=== PATIENT | female | born 1990 | race Caucasian/White ===

== ENCOUNTER 2017-09-02 16:10 | Inpatient (IN) | payer BC, OTHER ==
--- NOTE | 2017-09-03 00:05 | PDOC H&P ---
History of Present Illness Admission Date/PCP: 09/02/17 20:14 MYRON CLIFTON Patient complains of: SOB, dysuria, back pain x 2 days. History of Present Illness: ROB RODNEY is a 27 year old female @ 36 wks EGA with history of "kidney problems" diagnosed with pyelonephritis in the ER this evening. has been afrebrile since arrival but is requiring O2 supplementation and mildly SOB. complaining of flank pain mainly on the right. Past Medical History Pulmonary Medical History: Reports: Asthma Psychiatric Medical History: Denies: Depression Past Surgical History Past Surgical History: Reports: Orthopedic Surgery - left hand surgery Social History Smoking Status: Never Smoker Frequency of Alcohol Use: None Hx Recreational Drug Use: No Drugs: None Hx Prescription Drug Abuse: No Family History Family History: Arthritis, CAD, CVA, DM, Hyperlipidemia, Malignancy Parental Family History Reviewed: Yes Children Family History Reviewed: Yes Sibling(s) Family History Reviewed.: Yes Medication/Allergy Home Medications: Albuterol Sulfate [Proair HFA] 1 - 2 puff IH Q4 PRN 09/02/17 Fluticasone Propionate [Flovent Diskus] 2 puff IH PRN PRN 09/02/17 Ondansetron [Zofran Odt 4 mg Tablet] 1 tab PO Q6H PRN 09/02/17 Prenat 115/Iron Fum/Folic/Dss [Pnv-Ferrous Efhhwuac-Zvmr-RF] 1 tab PO DAILY 03/13 Allergies/Adverse Reactions: No Known Allergies Allergy (Unverified 09/02/17 23:05) Physical Exam - Physical Exam Vital Signs: Temp Pulse Resp BP Pulse Ox 97.8 F 113 H 20 101/56 L 98 09/02/17 22:08 09/02/17 22:08 09/02/17 22:08 09/02/17 22:08 09/02/17 22:08 Intake & Output 09/01/17 09/02/17 09/03/17 06:59 06:59 06:59 Weight 78 kg General appearance: PRESENT: no acute distress, cooperative - appears ill Head exam: PRESENT: normocephalic Respiratory exam: PRESENT: clear to auscultation lesli Pulses: PRESENT: normal radial pulses Vascular exam: PRESENT: normal capillary refill GI/Abdominal exam: PRESENT: soft - gravid and nontender Additional comments: +CVA tenderness Right>Left Assessment & Plan - Diagnosis (1) Qualifiers: Weeks of gestation: 36 weeks Qualified Code(s): Z3A.36 - 36 weeks gestation of Is this a current diagnosis for this admission?: Yes (2) Pyelonephritis Is this a current diagnosis for this admission?: Yes - Time Time Spent: 30 to 50 Minutes Critical Time spent with patient: Less than 15 minutes Anticipated discharge: Home Within: within 48 hours - Inpatient Certification Based on my medical assessment, after consideration of the patient's comorbidities, presenting symptoms, or acuity I expect that the services needed warrant INPATIENT care.: Yes I certify that my determination is in accordance with my understanding of Medicare's requirements for reasonable and necessary INPATIENT services [42 CFR 412.3e].: Yes Medical Necessity: Need Close Monitoring Due to Risk of Patient Decompensation, Need for IV Antibiotics
[2017-09-03] MEDS ORDERED: CEFTRIAXONE 1 GM/D5W RTU 1 GM/50 ML RTUPB IV ONE ×2 (02:00→05:56)
[2017-09-03] MEDS: RINGERS SOLUTION,LACTATED 1,000 ML IV PRN ×3 (03:46→16:59)
[2017-09-03 03:49] LABS: APPEARANCE,URINE SLIGHTLY-CLOUDY; BILIRUBIN,URINE NEGATIVE (NEGATIVE); COLOR,URINE AMBER; GLUCOSE, URINE NEGATIVE (NEGATIVE); KETONES,URINE TRACE mg/dL (NEGATIVE); LEUKOCYTE ESTERASE,URINE MODERATE (NEGATIVE); NITRITE,URINE NEGATIVE (NEGATIVE); PROTEIN,URINE 100 mg/dL (NEGATIVE); URINE SPECIFIC GRAVITY > 1.060
[2017-09-03] MEDS ORDERED: CEFTRIAXONE 1 GM/D5W RTU 1 GM/50 ML RTUPB IV SCH ×2 (06:00→10:00)
[2017-09-03 06:58] LABS: HEMATOCRIT 24.3 % (36.0-47.0); MEAN CORPUSCULAR HEMOGLOBIN 25.5 pg (27.0-33.4); MEAN CORPUSCULAR VOLUME 77 fl (80-97); PLATELET COUNT 197 10^3/uL (150-450); RED BLOOD COUNT 3.15 10^6/uL (3.72-5.28); RED CELL DISTRIBUTION WIDTH 16.3 % (11.5-14.0); WHITE BLOOD COUNT 9.1 10^3/uL (4.0-10.5)
[2017-09-03 08:30] LABS: HEMATOCRIT 27.8 % (36.0-47.0); HEMOGLOBIN 9.2 g/dL (12.0-15.5); MEAN CORPUSCULAR HEMOGLOBIN 25.4 pg (27.0-33.4); MEAN CORPUSCULAR HGB CONC 33.1 g/dL (32.0-36.0); MEAN CORPUSCULAR VOLUME 77 fl (80-97); PLATELET COUNT 210 10^3/uL (150-450); RED BLOOD COUNT 3.63 10^6/uL (3.72-5.28); RED CELL DISTRIBUTION WIDTH 15.8 % (11.5-14.0); WHITE BLOOD COUNT 6.9 10^3/uL (4.0-10.5)
[2017-09-03 08:31] LABS: ABSOLUTE LYMPHOCYTES# (MANUAL) 0.1 10^3/uL (0.5-4.7); ABSOLUTE MONOCYTES # (MANUAL) 0.1 10^3/uL (0.1-1.4); ABSOLUTE NEUTROPHILS# (MANUAL) 6.7 10^3/uL (1.7-8.2); BAND NEUTROPHILS % (MANUAL) 5 % (3-5); BASOPHILS % (MANUAL) 0 % (0-2); EOSINOPHILS % (MANUAL) 0 % (0-6); LYMPHOCYTES % (MANUAL) 2 % (13-45); METAMYELOCYTES % (MANUAL) 2 % (0); MONOCYTES % (MANUAL) 1 % (3-13); SEGMENTED NEUTROPHILS % (MAN) 88 % (42-78); TOTAL CELLS COUNTED 100
[2017-09-03 08:33] LABS: MYELOCYTES % (MANUAL) 1 % (0); PROMYELOCYTES % (MANUAL) 1 % (0)
[2017-09-03 08:34] LABS: ANISOCYTOSIS SLIGHT; OVALOCYTES SLIGHT; PLATELET COMMENT ADEQUATE; PLATELET GIANT PRESENT; PLATELET LARGE PRESENT; POIKILOCYTOSIS SLIGHT; SCHISTOCYTES 1+; TEAR DROP CELLS SLIGHT; TOXIC GRANULATION 1+
--- NOTE | 2017-09-03 08:53 | PDOC PROGRESS REPORT ---
Subjective Progress Note for:: 09/03/17 Subjective:: pt states she feels better but still SOB Reason For Visit: PYELONEPHRITIS Physical Exam - Physical Exam Vital Signs: Temp Pulse Resp BP Pulse Ox 97.3 F 102 H 18 86/47 L 95 09/03/17 07:45 09/03/17 07:45 09/03/17 07:45 09/03/17 07:45 09/03/17 07:45 Intake & Output 09/02/17 09/03/17 09/04/17 06:59 06:59 06:59 Intake Total 240 Output Total 850 Balance -610 Weight 78 kg General appearance: PRESENT: mild distress Respiratory exam: PRESENT: clear to auscultation lesli Cardiovascular exam: PRESENT: RRR Psychiatric exam: PRESENT: normal mood Result Laboratory Results: 09/03/17 06:26 09/03/17 06:26 WBC 9.1 RBC 3.15 L Hgb 8.0 L Hct 24.3 L MCV 77 L MCH 25.5 L MCHC 33.0 RDW 16.3 H Plt Count 197 Assessment & Plan - Diagnosis (1) Qualifiers: Weeks of gestation: 36 weeks Qualified Code(s): Z3A.36 - 36 weeks gestation of Is this a current diagnosis for this admission?: Yes (2) Pyelonephritis Is this a current diagnosis for this admission?: Yes - Plan Summary Plan Summary: alicia with present plan of management
--- NOTE | 2017-09-03 09:22 | RADIOLOGY REPORT (SQ) ---
EXAM DESCRIPTION: CTA CHEST COMPLETED DATE/TIME: 09/03/2017 1:38 am REASON FOR STUDY: SOB COMPARISON: None available TECHNIQUE: CT scan of the chest performed using helical scanning technique with dynamic intravenous contrast injection. Images reviewed with lung, soft tissue and bone windows. Reconstructed coronal and sagittal MPR images reviewed. Additional 3 dimensional post-processing performed to develop Maximal Intensity Projection images (UT P). All images stored on PACS. All CT scanners at this facility use dose modulation, iterative reconstruction, and/or weight based d osing when appropriate to reduce radiation dose to as low as reasonably achievable (ALARA). [facility]: Dose Right [facility]: CareDose [facility]: Dose Right [facility]: Teradose 4D [facility]: CUPS CONTRAST TYPE AND DOSE: 127 Isovue 370- low osmolar. Contrast bolus not optimized for the pulmonary arteries. RENAL FUNCTION: None required. The patient is less than 50 years old. RADIATION DOSE: . LIMITATIONS: None. FINDINGS: LUNGS AND PLEURA: No masses, infiltrates, pneumothorax. No pleural effusions, calcificati ons. AORTA AND GREAT VESSELS: No aneurysm. Contrast bolus not optimized for the aorta. HEART: No pericardial effusion. No significant coronary artery calcifications. PULMONARY ARTERIES: No proximal pulmonary emboli. Contrast bolus not optimized for the pulmonary art eries. HILAR AND MEDIASTINAL STRUCTURES: No identified masses or abnormal nodes. HARDWARE: None in the chest. UPPER ABDOMEN: No significant findings. Limited exam. THYROID AND OTHER SOFT TISSUES: No masses. No adenopathy. BONES: No acute or significant finding. 3D MIPS: Confirm above findings. OTHER: No other significant finding. IMPRESSION: No proximal pulmonary emboli. Contrast bolus not optimized for the pulmonary arteries. COMMENT: Quality ID # [id number]: Final reports with documentation of one or more dose reduction techniques (e.g., Automated exposure control, adjustment of the mA and/or kV according to patient size, use of iterative reconstruction technique) TECHNICAL DOCUMENTATION: JOB ID: [id number] [employer]- All Rights Reserved
[2017-09-03] MEDS ORDERED: DIPHENOXYLATE HCL/ATROP SULF 2.5-0.025 MG TABLET PO PRN (10:46)
[2017-09-03] MEDS ORDERED: DIPHENOXYLATE HCL/ATROP SULF 2.5-0.025 MG TABLET PO ONE (11:00)
[2017-09-03 11:50] LABS: NT PRO BNP 24 pg/mL (<125); TROPONIN I < 0.012 ng/mL
[2017-09-03 11:55] LABS: VENOUS BLOOD PCO2 26.2 mmHg (35-63); VENOUS BLOOD PH 7.46 (7.30-7.42)
[2017-09-03 11:57] LABS: VENOUS BLOOD BASE EXCESS -3.7 mmol/L; VENOUS BLOOD HCO3 18.4 mmol/L (20-32)
[2017-09-03 11:58] LABS: BLOOD UREA NITROGEN 4 mg/dL (7-20); CALCIUM 8.3 mg/dL (8.4-10.2); GLUCOSE 116 mg/dL (75-110)
[2017-09-03 11:59] LABS: CHLORIDE 104 mmol/L (98-107); POTASSIUM 3.1 mmol/L (3.6-5.0)
[2017-09-03 12:00] LABS: ANION GAP 10 (5-19); CARBON DIOXIDE 19 mmol/L (22-30); SODIUM 132.8 mmol/L (137-145)
[2017-09-03 12:01] LABS: ALBUMIN 2.9 g/dL (3.5-5.0); ALKALINE PHOSPHATASE 89 U/L (38-126); ASPARTATE AMINO TRANSFERASE 14 U/L (14-36)
[2017-09-03 12:02] LABS: ALANINE AMINOTRANSFERASE 19 U/L (9-52); BILIRUBIN,DIRECT 0.3 mg/dL (0.0-0.4); BILIRUBIN,TOTAL 0.6 mg/dL (0.2-1.3); TOTAL PROTEIN 5.6 g/dL (6.3-8.2)
[2017-09-03] MEDS: ACETAMINOPHEN 325 MG TABLET PO PRN (16:53)
[2017-09-03] MEDS: CEFTRIAXONE SODIUM 1,000 MG in DEXTROSE 5%-WATER 50 ML IV SCH (17:00)
[2017-09-03 17:42] LABS: APPEARANCE,URINE CLEAR; BILIRUBIN,URINE NEGATIVE (NEGATIVE); COLOR,URINE STRAW; GLUCOSE, URINE NEGATIVE (NEGATIVE); KETONES,URINE 20 mg/dL (NEGATIVE); LEUKOCYTE ESTERASE,URINE MODERATE (NEGATIVE); NITRITE,URINE NEGATIVE (NEGATIVE); PROTEIN,URINE NEGATIVE (NEGATIVE); URINE SPECIFIC GRAVITY 1.004; UROBILINOGEN,URINE NEGATIVE mg/dL (<2.0)
[2017-09-04] MEDS: RINGERS SOLUTION,LACTATED 1,000 ML IV PRN ×2 (01:55→10:38)
[2017-09-04] MEDS: ACETAMINOPHEN 325 MG TABLET PO PRN ×2 (05:02→17:01)
[2017-09-04] MEDS: CEFTRIAXONE SODIUM 1,000 MG in DEXTROSE 5%-WATER 50 ML IV SCH ×2 (05:02→17:01)
--- NOTE | 2017-09-04 11:54 | PDOC PROGRESS REPORT ---
Subjective-OB Subjective: Post Delivery Day: 27 year old. Denies any needs at this time Feeling better, still has some discomfort in right flank, no nausea, eating well , breathing better today Physical Exam (OB) Vital Signs: Temp Pulse Resp BP Pulse Ox 98.1 F 99 20 93/49 L 97 09/04/17 08:10 09/04/17 08:10 09/04/17 08:10 09/04/17 08:10 09/04/17 08:10 Intake & Output 09/03/17 09/04/17 09/05/17 06:59 06:59 06:59 Intake Total 240 2930 Output Total 850 1700 Balance -610 1230 Weight 78 kg - Abdomen Hernia Present: No Objective-Diagnostic Laboratory: 09/03/17 06:26 09/03/17 17:15 Urine Color STRAW Urine Appearance CLEAR Urine pH 6.0 Ur Specific [place] 1.004 Urine Protein NEGATIVE Urine Glucose (UA) NEGATIVE Urine Ketones 20 H Urine Blood NEGATIVE Urine Nitrite NEGATIVE Ur Leukocyte Esterase MODERATE H Urine WBC (Auto) 10 Urine RBC (Auto) 0 Assessment and Plan(PN) - Assessment and Plan (1) Qualifiers: Weeks of gestation: 36 weeks Qualified Code(s): Z3A.36 - 36 weeks gestation of Is this a current diagnosis for this admission?: Yes (2) Pyelonephritis Is this a current diagnosis for this admission?: Yes - Time Spent with Patient Time with patient: Less than 15 minutes - Disposition Anticipated Discharge: Home Within: within 24 hours - continues to have some right flank discomfort, + CVAT , will continue antibiotics and possible discharge in am
[2017-09-05] MEDS: ACETAMINOPHEN 325 MG TABLET PO PRN (04:58)
[2017-09-05] MEDS: CEFTRIAXONE SODIUM 1,000 MG in DEXTROSE 5%-WATER 50 ML IV SCH (05:00)
[2017-09-05] MEDS: RINGERS SOLUTION,LACTATED 1,000 ML IV PRN (05:00)
[2017-09-05 14:18] VITALS: BP 86/50
--- NOTE | 2017-09-05 17:12 | PDOC DISCHARGE SUMMARY ---
Final Diagnosis Discharge Date: 09/05/17 - Final Diagnosis (1) Is this a current diagnosis for this admission?: Yes (2) Pyelonephritis Is this a current diagnosis for this admission?: Yes Discharge Data - Discharge Medication Prescriptions: Nitrofurantoin Monohyd/M-Cryst [Macrobid 100 mg Capsule] 100 mg PO DAILY #30 capsule Home Medications: Albuterol Sulfate [Proair HFA] 1 - 2 puff IH Q4HP PRN 09/02/17 Fluticasone Propionate [Flovent Diskus] 2 puff IH BID 09/02/17 Ondansetron [Zofran Odt 4 mg Tablet] 1 tab PO Q6HP PRN 09/02/17 Prenat 115/Iron Fum/Folic/Dss [Pnv-Ferrous Lyrixwzy-Krpt-OI] 1 tab PO DAILY 03/13 Nitrofurantoin Monohyd/M-Cryst [Macrobid 100 mg Capsule] 100 mg PO DAILY #30 capsule 09/05/17 Reason(s) for Admission: Other - pyelonephritis Procedures: NST, Ultrasound Intrapartum Procedure(s): Other - IV antibiotics, obs - Diagnosis Test Laboratory: Temp Pulse Resp BP Pulse Ox 98.0 F 90 16 86/50 L 99 09/05/17 14:16 09/05/17 14:16 09/05/17 14:16 09/05/17 14:16 09/05/17 14:16 09/03/17 06:26 RBC 3.15 L Hgb 8.0 L Hct 24.3 L - Discharge information/Instructions Discharge Activity: Activity As Tolerated, Balance Activity w/Rest Discharge Diet: As Tolerated, Regular Disposition: HOME, SELF-CARE Follow up with: [facility] in: 2, Days - no CVA tenderness on exam today, no urine culture was ever collected. Pt. reports complete relief of symptoms. rx given for macrobid for the rest of per Dr. Murray. f/u on sunday as scheduled. Pt. asked questions and verbalized understanding.
== END 2017-09-05 15:05 | disposition home or self-care (01) | DRG 781 ==
LOC: ER 16:10 → EH 20:14 → OBSVTOIN 20:14 → 2S 22:01
PROVIDERS: ADMIT Obstetrics & Gynecology; ATTEND Obstetrics & Gynecology
PROC: 4A1HXCZ Monitoring of Products of Conception, Cardiac Rate, External Approach (ICD-10-PCS; principal; 2017-09-02)
DX: O23.03 Infections of kidney in pregnancy, third trimester (principal); N12 Tubulo-interstitial nephritis, not specified as acute or chronic; Z3A.36 36 weeks gestation of pregnancy
CPT/HCPCS: 36415; 59025; 71045; 71275; 80053; 81001; 82803; 83605; 83880; 84484; 85025; 85027; 87040; 99285; J0696; J3490; J7120

== ENCOUNTER 2017-10-08 10:21 | Inpatient (IN) | payer OTHER ==
[2017-10-08] MEDS ORDERED: RINGERS SOLUTION,LACTATED 1,000 ML IV ONE (11:17)
[2017-10-08] MEDS ORDERED: MISOPROSTOL 0.2 MG TABLET ONE (11:33)
[2017-10-08] MEDS ORDERED: EPHEDRINE SULFATE INJ 50 MG/1 ML AMPULE ONE (11:33)
[2017-10-08] MEDS ORDERED: FENTANYL CITRATE INJ/PF 100 MCG/2 ML AMPUL ONE (11:33)
[2017-10-08] MEDS ORDERED: BUPIVACAINE HCL 0.25 % INJ/PF (2.5 MG/1 ML) 30 ML VIAL ONE (11:35)
[2017-10-08] MEDS ORDERED: LIDOCAINE 1% INJ-PF (10 MG/ML) 30 ML SDV ONE (11:35)
[2017-10-08] MEDS ORDERED: FENTANYL/BUPIVACAINE/NS/PF 200 MCG/100 ML RTUINJ EPI ONE (11:35)
[2017-10-08] MEDS ORDERED: OXYTOCIN/NORMAL SALINE 20 UNIT/1,000 ML RTUINJ ONE (11:35)
[2017-10-08 11:43] LABS: AMORPHOUS SEDIMENT,URINE 1+ /HPF; APPEARANCE,URINE TURBID; BILIRUBIN,URINE NEGATIVE (NEGATIVE); GLUCOSE, URINE NEGATIVE (NEGATIVE); KETONES,URINE NEGATIVE (NEGATIVE); LEUKOCYTE ESTERASE,URINE MODERATE (NEGATIVE); NITRITE,URINE NEGATIVE (NEGATIVE); PROTEIN,URINE 30 mg/dL (NEGATIVE); URINE SPECIFIC GRAVITY 1.018
[2017-10-08 11:45] LABS: COLOR,URINE DARK YELLOW
[2017-10-08 12:04] LABS: EOSINOPHILS % (AUTO) 0.4 % (0-6); TOTAL CELLS COUNTED % (AUTO) 100 %
[2017-10-08 12:07] LABS: URINE AMPHETAMINES SCREEN NEGATIVE; URINE BARBITURATES SCREEN NEGATIVE; URINE BENZODIAZEPINES SCREEN NEGATIVE; URINE COCAINE SCREEN NEGATIVE; URINE MARIJUANA (THC) SCREEN NEGATIVE; URINE METHADONE SCREEN NEGATIVE; URINE PHENCYCLIDINE SCREEN NEGATIVE
[2017-10-08 12:10] LABS: ABSOLUTE NEUT (AUTO) 7.3 10^3/uL (1.7-8.2); BASOPHILS % (AUTO) 0.2 % (0-2); HEMATOCRIT 28.7 % (36.0-47.0); HEMOGLOBIN 9.6 g/dL (12.0-15.5); LYMPHOCYTES % (AUTO) 11.2 % (13-45); MEAN CORPUSCULAR HEMOGLOBIN 25.1 pg (27.0-33.4); MEAN CORPUSCULAR HGB CONC 33.4 g/dL (32.0-36.0); MEAN CORPUSCULAR VOLUME 75 fl (80-97); MONOCYTES % (AUTO) 10.5 % (3-13); PLATELET COUNT 236 10^3/uL (150-450); RED BLOOD COUNT 3.83 10^6/uL (3.72-5.28); RED CELL DISTRIBUTION WIDTH 18.3 % (11.5-14.0); SEGMENTED NEUTROPHILS % (AUTO) 77.7 % (42-78); WHITE BLOOD COUNT 9.3 10^3/uL (4.0-10.5)
[2017-10-08] MEDS: RINGERS SOLUTION,LACTATED 1,000 ML IV PRN ×2 (14:08→14:09)
--- NOTE | 2017-10-08 15:04 | L&D Progress Notes ---
PROGRESS NOTES Datetime Report Generated by CPN: 10/08/2017 15:04 PROGRESS NOTE Impression: Normal Progression of Labor Plan: Continue Present Management Vital Signs : Reviewed Comment: arom for clear fluid, labor down for now, anticipate VAGINAL EXAM Dilatation: 10 Dilatation: 7 Effacement: 100 Effacement: 90 Station: 1 Station: 0 Contractions: q2-3 mins Contractions: q2-5mins MEMBRANES Membranes: Ruptured Membranes: Intact FETUS A FHR Category: Category I : 40+4 Estimated Weight (gm): 3300 Presentation: Oblique SIGNATURE SIGNATURE: [id number] Assignment: Bambi Murray MD Signature: with User ID: [email or web address] : with User ID: [email or web address]
[2017-10-08] MEDS ORDERED: DIPH/PERTUSS(ACELL)/TETANUS VAC/PF 0.5 ML SYR (>=10YO) IM PRN (15:56)
[2017-10-08] MEDS ORDERED: PROMETHAZINE HCL 25 MG TABLET PO PRN (15:56)
[2017-10-08] MEDS ORDERED: GLYCERIN/WITCH HAZEL LEAF 1 EACH MED..PAD TP PRN (15:56)
[2017-10-08] MEDS ORDERED: MAGNESIUM HYDROXIDE SUSP 30 ML UDCUP PO PRN (15:56)
[2017-10-08] MEDS ORDERED: DIPHENHYDRAMINE HCL 25 MG CAPSULE PO PRN (15:56)
[2017-10-08] MEDS ORDERED: NA PHOS,M-B/NA PHOS,DI-BA (ADULT) 133 ML ENEMA PR PRN (15:56)
[2017-10-08] MEDS ORDERED: ZOLPIDEM TARTRATE 5 MG TABLET PO PRN (15:56)
[2017-10-08] MEDS ORDERED: MEASLES,MUMPS&RUBELLA VACC/PF 0.5 ML VIAL SUBCUT PRN (15:56)
[2017-10-08] MEDS ORDERED: BENZOCAINE/MENTHOL AEROSOL SPRAY 56 ML TOP PRN (15:56)
[2017-10-08] MEDS ORDERED: PROMETHAZINE HCL 25 MG SUPP.RECT PR PRN (15:56)
[2017-10-08] MEDS ORDERED: PSEUDOEPHEDRINE HCL 30 MG TABLET PO PRN (15:56)
[2017-10-08] MEDS ORDERED: ACETAMINOPHEN 325 MG TABLET PO PRN (15:56)
[2017-10-08] MEDS ORDERED: DIBUCAINE 1% OINTMENT 28 GM TP PRN (15:56)
[2017-10-08] MEDS ORDERED: ACETAMINOPHEN WITH CODEINE #3 TABLET PO PRN ×2 (15:56)
[2017-10-08] MEDS ORDERED: OXYTOCIN/NORMAL SALINE 20 UNIT/1,000 ML RTUINJ IV PRN (15:56)
[2017-10-08] MEDS ORDERED: PROMETHAZINE HCL INJ 25 MG/1 ML VIAL IV PRN (15:56)
--- NOTE | 2017-10-08 16:40 | Warning Signs in Babies ---
VOD Warning Signs Datetime Report Generated by [facility]: 10/08/2017 16:39 VOD#608 -Warning Signs in Babies: Viewed with Parent(s)/Family (10/08/2017 10:42:Pinky Marino RN)
--- NOTE | 2017-10-08 17:19 | Admission Physical ---
Datetime Report Generated by CPN: 10/08/2017 17:19 CURRENT ADMISSION Chief Complaint: Uterine Contractions Chief Complaint Other: sent from office for direct admit for active labor Indication for Induction: Not Applicable Indication for Induction: Term, Intrauterine ; Active Labor Admit Plan: Admit to Unit ALLERGIES Medication Allergies: No Medication Allergies: adhesive (10/08/2017) Medication Allergies: No Known Allergies (09/02/2017) Latex: No Latex Allergies OBSTETRICAL HISTORY EDC: 10/04/2017 00:00 : 5 Para: 1 Gestational Diabetes: No Rh Sensitization: No Incompetent Cervix: No CESAR: No Infertility: No ART Treatment: No Uterine Anomaly: No IUGR: No Hx Previous C/S: No Macrosomia: No Hx Loss/Stillborn: No PIH: No Hx : No Placenta Previa/Abruption: No Depression/PP Depression: No PTL/PROM: No Post Hemorrhage: No Obstetrical History Comments: G1 2012 SAB G2 2013 girl G3 2015 SAb G4 2016 SAB G5 current SEE RECORDS Alcohol: No Marijuana : No Cocaine: No Other Illicit Drugs: No Cigarettes: Never Smoker. 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 Heart Disease: No Hosp/Surgery: No Autoimmune Disorder: No Anesthetic Complications: No Kidney Disease: Yes Abnormal Pap Smear: No Neuro/Epilepsy: No Psychiatric Disorders: No Other Medical Diseases: No Hepatitis/Liver Disease: No Significant Family History: No Varicosities/Phlebitis: No Trauma/Violence : No Thyroid Dysfunction: No Medical History Comments: [place] INFECTIOUS HISTORY Gonorrhea: No Genital Herpes: No Chlamydia: No Tuberculosis: No Syphilis: No Hepatitis: No HIV/AIDS Exposure: No Rash or Viral Illness: No HPV: No PHYSICAL EXAM General: Normal HEENT: Normal Neurologic: Normal Thyroid: Deferred Heart: Normal Lungs: Normal Breast: Deferred Back: Normal Abdomen: Normal Genitourinary Exam: Normal Extremities: Normal DTRs: Deferred Pelvic Type: Adequate Vital Signs: Reviewed VAGINAL EXAM Dilatation: 10 Dilatation: 7 Effacement: 100 Effacement: 90 Station: 1 Station: 0 Contraction Comments: q2-3 mins Contraction Comments: q2-5mins MEMBRANES Membranes: Ruptured Membranes: Intact FETUS A EGA: 40.4 Monitoring: External US FHR- Baseline: 135 Variability: Moderate 6-25bpm Accelerations: 15X15 Decelerations: None FHR Category: Category I Estimated Weight (gm): 3300 Presentation: Oblique Admit Comment: at 40+4 in active labor, sent from clinic for direct admit. current asthma with last inhaler use 2 days ago, has home meds-proair and advair. was taking macrobid daily for pyelo in . Plan is epidural and anticipate . PLANS FOR LABOR AND DELIVERY Pain Management: Epidural Feeding Preference: Formula Benefit of Breast Feed Discussed: Yes Circumcision: Yes INFORMED CONSENT Assignment: Bambi Murray MD Signature: with User ID: [email or web address] : with User ID: [email or web address]
--- NOTE | 2017-10-08 17:28 | Delivery Summary ---
Del Sum A-C Datetime Report Generated by CPN: 10/08/2017 17:28 DELIVERY PERSONNEL DELIVERY PERSONNEL: [id number] Delivery Doctor:: Fallon Abreu CNM Labor and Delivery Nurse:: Fadumo Matthews RN Nursery Nurse:: Jenny Blair RN Nursery Nurse:: Barbara Nova RN Claim Rep/WARP COILER: Kaylie Franciscoaneda, ST MATERNAL INFORMATION Delivery Anesthesia: Epidural Medications After Delivery: Pitocin Drip 20 Units/1000ml NSS Estimated Blood Loss (ml): 300 Maternal Complications: None Provider Comments: PATRICIA, NUCHAL CORD-LOOSE. LEFT SHOULDER AND NUCHAL HAND DELIVERED QUICKLY AFTER HEAD. CORD DOUBLE CLAMPED AND CUT BY FOB, SPONTANEOUS PLACENTA SHULTZE INTACT WITH 3VC. ADHERENT MEMBRANES MANUALLY REMOVED AND UTERUS EXPLORED. FIRST DEGREE PERINEAL LACERATION REPAIRED UNDER EPIDURAL ANESTHESIA. MOTHER AND INFANT STABLE IN L_D #4 LABOR SUMMARY EDC: 10/04/2017 00:00 Attempted: No Labor Anesthesia: Epidural LABOR INFORMATION Reason for Induction: Not Applicable Onset of Labor: 10/08/2017 10:46 Complete Dilatation: 10/08/2017 14:29 Oxytocin: N/A Group B Beta Strep: negative Steroids Given: None Reason Steroids Not Administered: Not Applicable MEMBRANES Membranes Rupture Method: Artificial Rupture of Membranes: 10/08/2017 14:29 Length of Rupture (hr): 1.00 Amniotic Fluid Color: Clear Amniotic Fluid Amount: Small Amniotic Fluid Odor: Normal STAGES OF LABOR Stage 1 hr: 3 Stage 1 min: 43 Stage 2 hr: 1 Stage 2 min: 0 Stage 3 hr: 0 Stage 3 min: 5 Total Time in Labor hr: 4 Total Time in Labor min: 48 VAGINAL DELIVERY Episiotomy: None Laceration #1: Perineal Laceration Extension #1: First Degree Laceration Repair: Yes Sponge Count Correct: N/A Sharps Count Correct: N/A BABY A INFORMATION Delivery Date/Time: 10/08/2017 15:29 Method of Delivery: Vaginal Born in Route : No : N/A Forceps: N/A Vacuum Extraction: N/A Shoulder Dystocia : No PRESENTATION/POSITION BABY A Presentation: Cephalic Cephalic Presentation: Vertex Vertex Position: Left Occipital Anterior Breech Presentation: N/A PLACENTA INFORMATION BABY A Placenta Delivery Time : 10/08/2017 15:34 Placenta Method of Delivery: Manual Removal Placenta Status: Delivered SCORES BABY A Heart Rate 1 min: >100 bpm Resp Effort 1 min: Good Cry Reflex Irritability 1 min: Cough or Sneeze or Pulls Away Muscle Tone 1 min: Active Motion Color 1 min: Blue/Pale Resuscitation Effort 1 min: Tactile Stimulation SCORE 1 MIN: 8 Heart Rate 5 min: >100 bpm Resp Effort 5 min: Good Cry Reflex Irritability 5 min: Cough or Sneeze or Pulls Away Muscle Tone 5 min: Active Motion Color 5 min: Body Marquez, Extremities Blue SCORE 5 MIN: 9 INFORMATION BABY A Gestational Age at Delivery: 40.4 Gestational Status: Full Term- 39- 40.6 Weeks Infant Outcome : Liveborn Infant Condition : Stable Sex: Male IDENTIFICATION BABY A Infant Verification Date/Time: 10/08/2017 16:07 ID Band Number: [id number] Mother's Name Verified: Yes RN Verifying : Gissel Matthews, RN/ JEdgar Honeycutt, RN WEIGHT/LENGTH BABY A Birthweight (gm): 3580 Weight (lb): 7 Infant Weight (oz): 14 Length (in): 20.50 Length (cm): 52.07 CORD INFORMATION BABY A No. Cord Vessels: 3 Nuchal Cord : Around Neck x1, Loose Cord Blood Taken: Yes-For Storage (Mom's Blood type +) Infant Suction: None ASSESSMENT BABY A Complications: None Physical Findings at Delivery: Within Normal Limits Infant Respirations: Appears Normal Skin to Skin: Yes Trimmer Machine/ALS Called : No Care By: Wendy Blair RN/ Barbara Transferred To: [facility] with Mother SIGNATURES Assignment: Bambi Murray MD Signature: with User ID: [email or web address] : with User ID: [email or web address] : I was personally available for consultation and serving as supervising physician for the MLP.
[2017-10-08] MEDS: FERROUS SULFATE 325 MG TABLET PO SCH (20:35)
[2017-10-08] MEDS: DOCUSATE SODIUM 100 MG CAPSULE PO SCH (20:35)
[2017-10-08] MEDS: IBUPROFEN 800 MG TABLET PO SCH (21:12)
[2017-10-08] MEDS: FAMOTIDINE 20 MG TABLET PO SCH (21:13)
[2017-10-09] MEDS: IBUPROFEN 800 MG TABLET PO SCH ×3 (05:10→21:52)
[2017-10-09 08:19] LABS: HEMOGLOBIN 9.5 g/dL (12.0-15.5); MEAN CORPUSCULAR HEMOGLOBIN 24.8 pg (27.0-33.4); MEAN CORPUSCULAR HGB CONC 32.8 g/dL (32.0-36.0); MEAN CORPUSCULAR VOLUME 76 fl (80-97); PLATELET COUNT 274 10^3/uL (150-450); RED BLOOD COUNT 3.84 10^6/uL (3.72-5.28); RED CELL DISTRIBUTION WIDTH 18.8 % (11.5-14.0); WHITE BLOOD COUNT 12.1 10^3/uL (4.0-10.5)
--- NOTE | 2017-10-09 08:25 | PDOC PROGRESS REPORT ---
Subjective-OB Progress Note for:: 10/09/17 Subjective: Doing well, had a baby boy, bottle feeding, ambulating, scant bleeding Physical Exam (OB) Vital Signs: Temp Pulse Resp BP Pulse Ox 98.4 F 102 H 14 111/71 99 10/08/17 20:00 10/08/17 20:00 10/08/17 20:00 10/08/17 20:00 10/08/17 20:00 Intake & Output 10/08/17 10/09/17 10/10/17 06:59 06:59 06:59 Weight 79 kg - PIH/Pre-Eclampsia Headache: Absent Epigastric Pain: No Visual Changes: No - Lochia Lochia Amount: Small 10-25 ml Lochia Color: Rubra/Red - Abdomen Description: Soft, Round Hernia Present: No Fundal Description: Firm, Midline Fundal Height: u/u - u/2 Objective-Diagnostic Laboratory: 10/09/17 07:29 10/08/17 10/08/17 10/08/17 10:33 11:37 11:37 WBC 9.3 RBC 3.83 Hgb 9.6 L Hct 28.7 L MCV 75 L MCH 25.1 L MCHC 33.4 RDW 18.3 H Plt Count 236 Seg Neutrophils % 77.7 Lymphocytes % 11.2 L Monocytes % 10.5 Eosinophils % 0.4 Basophils % 0.2 Absolute Neutrophils 7.3 Absolute Lymphocytes 1.0 Absolute Monocytes 1.0 Absolute Eosinophils 0.0 Absolute Basophils 0.0 Urine Color DARK YELLOW Urine Appearance TURBID Urine pH 7.0 Ur Specific [place] 1.018 Urine Protein 30 H Urine Glucose (UA) NEGATIVE Urine Ketones NEGATIVE Urine Blood LARGE H Urine Nitrite NEGATIVE Ur Leukocyte Esterase MODERATE H Urine WBC (Auto) 46 Urine RBC (Auto) 165 Blood Type A POSITIVE Antibody Screen NEGATIVE 10/09/17 07:29 WBC 12.1 H RBC 3.84 Hgb 9.5 L Hct 29.0 L MCV 76 L MCH 24.8 L MCHC 32.8 RDW 18.8 H Plt Count 274 Seg Neutrophils % Lymphocytes % Monocytes % Eosinophils % Basophils % Absolute Neutrophils Absolute Lymphocytes Absolute Monocytes Absolute Eosinophils Absolute Basophils Urine Color Urine Appearance Urine pH Ur Specific [place] Urine Protein Urine Glucose (UA) Urine Ketones Urine Blood Urine Nitrite Ur Leukocyte Esterase Urine WBC (Auto) Urine RBC (Auto) Blood Type Antibody Screen Assessment and Plan(PN) - Assessment and Plan (1) Vaginal delivery Is this a current diagnosis for this admission?: Yes (2) Qualifiers: Weeks of gestation: 39 weeks Qualified Code(s): Z3A.39 - 39 weeks gestation of Is this a current diagnosis for this admission?: Yes - Time Spent with Patient Time with patient: Less than 15 minutes Medications reviewed and adjusted accordingly: Yes - Disposition Anticipated Discharge: Home Within: within 24 hours
[2017-10-09] MEDS: DOCUSATE SODIUM 100 MG CAPSULE PO SCH ×2 (10:11→17:28)
[2017-10-09] MEDS: SENNOSIDES/DOCUSATE 8.6-50 MG 1 EACH TABLET PO SCH (10:11)
[2017-10-09] MEDS: FAMOTIDINE 20 MG TABLET PO SCH ×2 (10:11→21:52)
[2017-10-09] MEDS: PRENATAL VITAMIN W DHA CAPSULE PO SCH (10:11)
[2017-10-09] MEDS: FERROUS SULFATE 325 MG TABLET PO SCH ×2 (10:11→17:28)
[2017-10-10] MEDS: IBUPROFEN 800 MG TABLET PO SCH ×2 (05:18→14:18)
--- NOTE | 2017-10-10 08:46 | PDOC DISCHARGE SUMMARY ---
Final Diagnosis Discharge Date: 10/10/17 - Final Diagnosis (1) Active labor at term Is this a current diagnosis for this admission?: Yes (2) Anemia Is this a current diagnosis for this admission?: Yes (3) Vaginal delivery Is this a current diagnosis for this admission?: Yes Discharge Data - Discharge Medication Prescriptions: Docusate Sodium [Colace 100 mg Capsule] 100 mg PO BID #60 capsule Ferrous Sulfate [Feosol 325 mg Tablet] 325 mg PO BID #60 tablet Ibuprofen [Motrin 800 mg Tablet] 800 mg PO Q8 #60 tablet Home Medications: Prenat 115/Iron Fum/Folic/Dss [Pnv-Ferrous Cckkiosu-Zdky-NG] 1 tab PO DAILY 03/13 Nitrofurantoin Monohyd/M-Cryst [Macrobid 100 mg Capsule] 100 mg PO DAILY #30 capsule 09/05/17 Docusate Sodium [Colace 100 mg Capsule] 100 mg PO BID #60 capsule 10/10/17 Ferrous Sulfate [Feosol 325 mg Tablet] 325 mg PO BID #60 tablet 10/10/17 Ibuprofen [Motrin 800 mg Tablet] 800 mg PO Q8 #60 tablet 10/10/17 Gestational Age: 40.4 Reason(s) for Admission: Induction of Labor Procedures: NST Intrapartum Procedure(s): Spontaneous Vaginal Delivery Complication(s): Laceration-Perineal Laceration-Degree: 1st - Data Baby 1 Male at 1 minute: 8 at 5 minutes: 9 Weight: 3580 kg Home with Mother: Yes Complications: No - Diagnosis Test Laboratory: Temp Pulse Resp BP Pulse Ox 98.0 F 92 16 103/62 98 10/09/17 20:20 10/09/17 20:20 10/09/17 20:20 10/09/17 20:20 10/09/17 20:20 10/08/17 10/08/17 10/09/17 10:33 11:37 07:29 RBC 3.83 3.84 Hgb 9.6 L 9.5 L Hct 28.7 L 29.0 L Urine Opiates Screen NEGATIVE - Discharge information/Instructions Discharge Activity: Activity As Tolerated, Pelvic Rest, No tub bath Discharge Diet: Regular Disposition: HOME, SELF-CARE Follow up with: [facility] in: 4, Weeks
[2017-10-10] MEDS: FAMOTIDINE 20 MG TABLET PO SCH (09:47)
[2017-10-10] MEDS: DOCUSATE SODIUM 100 MG CAPSULE PO SCH (09:47)
[2017-10-10] MEDS: SENNOSIDES/DOCUSATE 8.6-50 MG 1 EACH TABLET PO SCH (09:48)
[2017-10-10] MEDS: FERROUS SULFATE 325 MG TABLET PO SCH (09:48)
[2017-10-10] MEDS: PRENATAL VITAMIN W DHA CAPSULE PO SCH (09:48)
[2017-10-10 10:52] VITALS: BP 95/68
== END 2017-10-10 14:00 | disposition home or self-care (01) | DRG 775 ==
LOC: LC 10:21 → LR 10:40 → 2S 17:14
PROVIDERS: ADMIT Student in an Organized Health Care Education/Training Program; ATTEND Student in an Organized Health Care Education/Training Program
PROC: 10E0XZZ Delivery of Products of Conception, External Approach (ICD-10-PCS; principal; 2017-10-08)
PROC: 10907ZC Drainage of Amniotic Fluid, Therapeutic from Products of Conception, Via Natural or Artificial Opening (ICD-10-PCS; 2017-10-08)
PROC: 0HQ9XZZ Repair Perineum Skin, External Approach (ICD-10-PCS; 2017-10-08)
PROC: 4A1HXCZ Monitoring of Products of Conception, Cardiac Rate, External Approach (ICD-10-PCS; 2017-10-08)
PROC: 3E0234Z Introduction of Serum, Toxoid and Vaccine into Muscle, Percutaneous Approach (ICD-10-PCS; 2017-10-10)
DX: O69.81X0 Labor and delivery complicated by cord around neck, without compression, not applicable or unspecified (principal); O70.0 First degree perineal laceration during delivery; O99.52 Diseases of the respiratory system complicating childbirth; J45.909 Unspecified asthma, uncomplicated; O99.02 Anemia complicating childbirth; D64.9 Anemia, unspecified; Z3A.39 39 weeks gestation of pregnancy; Z79.51 Long term (current) use of inhaled steroids; Z37.0 Single live birth; Z23 Encounter for immunization
CPT/HCPCS: 36415; 80307; 81001; 85025; 85027; 86592; 86701; 86850; 86900; 86901; 87086; 90715; J2590; J3010; J3490